=== PATIENT | female | born 1980 | race Two or more races ===

== ENCOUNTER 2023-10-09 12:09 | Outpatient (AMB) | payer BC, SELFPAY ==
[2023-10-09 13:19] VITALS: BP 124/80; PULSE 87; TEMP 36.3; O2SAT 98; BMI 38.2
--- NOTE | 2023-10-09 13:19 | MHC.OFFWIV ---
Intake Vital Signs 10/09/23 13:19 10/09/23 13:24 Height 5 ft 2 in 5 ft 2 in Weight 209 lb BMI 38.2 BP 124/80 Blood Pressure Location Rt brachial Position Sitting Pulse 87 Pulse Source Pulse Oximeter Temp 97.4 F Temp Source Temporal Artery Scan Pulse Oximetry (%) 98 Oxygen Delivery Method Room Air Intake Visit Reasons: HAND THERMAL CUTTER, rash in low back Intake Note: pt is here today for rash on lower back started 3days ago Allergies No Known Allergies Allergy (Verified 10/09/23 13:25) Do you need a note to return to daycare/school/sports/work: No HPI HAND THERMAL CUTTER, rash in low back HPI Details 43 year old female patient presents today with an itchy rash on the right side of her lower back. States it looks like there are small blisters there. No use of any new products or medications. Denies any fever/chills. Denies pain. Has tried hydrocortisone on the rash without relief. Review of Systems Const All systems reviewed & are unremarkable except as noted in HPI and below Physical Exam Vital Signs: Last Vital Signs Temp 97.4 F 10/09/23 13:19 Pulse 87 10/09/23 13:19 BP 124/80 10/09/23 13:19 Pulse Ox 98 10/09/23 13:19 Oxygen Delivery Method Room Air 10/09/23 13:19 BMI result Body Mass Index 38.2 Const General: cooperative, healthy appearing and no acute distress Resp Effort & Inspection: normal respiratory effort Skin Other: small rash with maculopapular lesions on right side of lower back, extending laterally in a linear distribution. No open areas. No surrounding warmth or erythema. Extrem General: Yes capillary refill normal and Yes no clubbing, cyanosis or edema Psych Appearance: grossly normal Mental Status: mental status grossly normal Speech and movement: Normal speech and movement present Assessment & Plan Assessment & Plan (1) Herpes zoster: Code(s): B02.9 - Zoster without complications Qualifiers: Herpes zoster complications: without complications Qualified Code(s): B02.9 - Zoster without complications Plan: Valacyclovir for zoster rash on right side of lower back. Discussed starting on prednisone as well and patient would like very low dose of this. Will start short course of 10mg BID. Advised patient to return to the clinic if she does not improve with treatment. She agrees to plan. Medications: New prednisone 10 mg PO BID 6 tabs 0RF 3 days B02.9 - Zoster without complications valacyclovir Take 2 tablets, 3 times a day until all lesions have crusted over. 1,000 mg (2 x 500 mg) PO TID 60 tabs 0RF 10 days B02.9 - Zoster without complications Coding Level of Care Code Est Pt Level 3 (63952) Diagnoses Herpes zoster without complication B02.9 Herpes zoster complications: without complications
== END 2023-10-09 13:54 | disposition home or self-care (01) ==
PROVIDERS: Visit Provider Nurse Practitioner Family
DX: B02.9 Zoster without complications (principal)
CPT/HCPCS: 99213